=== PATIENT | male | born 1960 | race Hispanic/Latino ===

== ENCOUNTER 2023-09-23 08:45 | Day surgery (SDC) | payer BC ==
[2023-09-22 12:33] VITALS: BMI 33.1
[2023-09-23] MEDS ORDERED: PROPOFOL 40 ML ONE (11:59)
[2023-09-23] MEDS ORDERED: Lidocaine 1% PF 5 ML VIAL ONE (11:59)
[2023-09-23] MEDS ORDERED: PROPOFOL 20 ML ONE (12:14)
== END 2023-09-23 13:01 | disposition home or self-care (01) ==
LOC: CSHSDC 08:45
PROVIDERS: ATTEND Internal Medicine Gastroenterology
PROC: 0DJD8ZZ Inspection of Lower Intestinal Tract, Via Natural or Artificial Opening Endoscopic (ICD-10-PCS; principal; 2023-09-23)
DX: Z12.11 Encounter for screening for malignant neoplasm of colon (principal); K57.30 Diverticulosis of large intestine without perforation or abscess without bleeding; K64.9 Unspecified hemorrhoids; M19.90 Unspecified osteoarthritis, unspecified site; G47.30 Sleep apnea, unspecified; Z79.899 Other long term (current) drug therapy
CPT/HCPCS: J2704